=== PATIENT | female | born 1980 | race Caucasian/White ===

== ENCOUNTER 2022-06-07 10:45 | Outpatient (RCR) | payer BC, SELFPAY | END 2022-07-20 11:48 | disposition home or self-care (01) | PROVIDERS: Visit Provider Advanced Practice Midwife | DX: M25.551 Pain in right hip (principal); M54.50 Low back pain, unspecified; Z51.89 Encounter for other specified aftercare | CPT/HCPCS: 97110; 97140; 97535 ==

== ENCOUNTER 2022-07-20 07:55 | Outpatient (CLI) | payer BC, SELFPAY ==
[2022-07-20 18:06] LABS: Vitamin D 25 Hydroxy* 52 ng/mL (30-80)
[2022-07-20 23:17] LABS: Cholesterol* 146 mg/dL (90-199); HDL Cholesterol* 86 mg/dL (>=50); LDL Cholesterol Calculated 50 mg/dL (<100); Triglycerides* 51 mg/dL (40-149)
== END 2022-07-20 07:56 | disposition home or self-care (01) ==
PROVIDERS: Visit Provider Family Medicine
DX: Z13.6 Encounter for screening for cardiovascular disorders (principal); Z01.419 Encounter for gynecological examination (general) (routine) without abnormal findings; E55.9 Vitamin D deficiency, unspecified; D64.9 Anemia, unspecified
CPT/HCPCS: 80061; 82306

== ENCOUNTER 2023-02-23 12:06 | Outpatient (CLI) | payer BC, SELFPAY ==
[2023-02-23 12:27] LABS: HCG Qualitative* Negative (Negative)
== END 2023-02-23 12:07 | disposition home or self-care (01) ==
PROVIDERS: PCP Family Medicine; Visit Provider Internal Medicine
DX: Z12.11 Encounter for screening for malignant neoplasm of colon (principal); Z80.0 Family history of malignant neoplasm of digestive organs
CPT/HCPCS: 45378; 84703; J2250; J3010

== ENCOUNTER 2023-10-05 07:45 | Outpatient (CLI) | payer BC, SELFPAY | END 2023-10-05 07:46 | disposition home or self-care (01) | LOC: NFLDREF 10-12 07:36 | PROVIDERS: PCP Family Medicine; Referring Provider Family Medicine; Visit Provider Family Medicine | DX: Z01.419 Encounter for gynecological examination (general) (routine) without abnormal findings (principal); E66.9 Obesity, unspecified; Z13.6 Encounter for screening for cardiovascular disorders | CPT/HCPCS: 80053; 80061 ==

== ENCOUNTER 2024-01-16 07:30 | Outpatient (RCR) | payer BC, SELFPAY | END 2024-02-18 09:36 | disposition home or self-care (01) | PROVIDERS: PCP Family Medicine; Visit Provider Family Medicine | DX: M54.50 Low back pain, unspecified (principal); M25.551 Pain in right hip; M25.552 Pain in left hip; M79.672 Pain in left foot; M62.81 Muscle weakness (generalized); Z51.89 Encounter for other specified aftercare | CPT/HCPCS: 97110; 97140; 97161 ==

== ENCOUNTER 2024-03-21 14:25 | Outpatient (CLI) | payer BC, SELFPAY ==
--- NOTE | 2024-03-21 14:40 | MM_ITS ---
Patient: TANK ACOSTA Facility:?[facility] Patient ID:?[id number] Site Patient ID:?[id number]. Site :?[id number] Study:?XRay-Breast Bilateral 3D W/CAD-03/21/2024 3:00:42 PM Ordering Physician:Renata Final Report: BILATERAL SCREENING MAMMOGRAM WITH COMPUTER-AIDED DETECTION AND TOMOSYNTHESIS TECHNIQUE: CC and MLO views were obtained. These mammographic images have been obtained using full-field digital technique. These mammographic images were interpreted with the benefit of computer-aided detection. Breast Tomosynthesis was used in this interpretation. COMPARISON FILM: Baseline. FINDINGS: The breasts are heterogeneously dense, which may obscure small masses. IMPRESSION: There is no radiographic evidence for malignancy. ASSESSMENT: BI-RADS Category 1: Negative RECOMMENDATION: Routine screening mammogram in 1 year. A lay language report of this examination will be provided to the patient. Davi Estrada M.D. Diagnostic Radiologist [email or web address] DSM/sp R& Transcribed: 8:09 p.m. SP/Dictated by: Davi Estrada MD @ 03/27/2024 9:59:00 AM Signed by:?Davi Estrada MD @03/27/2024 8:30:13 PM (Electronic Signature)
== END 2024-03-21 14:26 | disposition home or self-care (01) ==
LOC: MAMMO 14:26
PROVIDERS: PCP Family Medicine; Visit Provider Family Medicine
DX: Z12.31 Encounter for screening mammogram for malignant neoplasm of breast (principal); R92.2 Inconclusive mammogram
CPT/HCPCS: 77063; 77067

== ENCOUNTER 2025-02-11 08:11 | Outpatient (CLI) | payer BC, SELFPAY | END 2025-02-11 08:12 | disposition home or self-care (01) | LOC: NFLDREF 17:54 | PROVIDERS: PCP Family Medicine; Referring Provider Family Medicine; Visit Provider Family Medicine | DX: E66.9 Obesity, unspecified (principal); R53.83 Other fatigue; R73.01 Impaired fasting glucose; F33.42 Major depressive disorder, recurrent, in full remission; Z13.6 Encounter for screening for cardiovascular disorders | CPT/HCPCS: 80053; 80061; 84439; 84443 ==

== ENCOUNTER 2025-07-03 08:57 | Outpatient (CLI) | payer BC, SELFPAY ==
--- NOTE | 2025-07-03 09:15 | CRLHL7_ITS ---
For Patients: As a result of the Cures Act, medical imaging exams and procedure reports are released immediately into your electronic medical record. You may view this report before your referring provider. If you have questions, please contact your health care provider. INDICATION: BILATERAL SCREENING MAMMOGRAM, ASYMPTOMATIC 45 Y/O FEMALE COMPARISON: 03/21/2024 TECHNIQUE: Digital mammogram in CC and MLO projections including computer-aided detection (CAD) and tomosynthesis. BREAST COMPOSITION: The breasts are heterogeneously dense, which may obscure small masses. FINDINGS: No suspicious findings. ASSESSMENT: BI-RADS 1 Negative RECOMMENDATION: Annual screening mammogram. A lay language report of this examination will be provided to the patient. Dictated by: Davi Estrada MD @ 07/03/2025 09:36:43 (Electronically Signed)
== END 2025-07-03 08:58 | disposition home or self-care (01) ==
LOC: MAMMO 08:58
PROVIDERS: PCP Family Medicine; Visit Provider Family Medicine
DX: Z12.31 Encounter for screening mammogram for malignant neoplasm of breast (principal); R92.333 Mammographic heterogeneous density, bilateral breasts
CPT/HCPCS: 77063; 77067

== ENCOUNTER 2025-09-23 09:18 | Outpatient (CLI) | payer BC, SELFPAY ==
[2025-09-25 06:14] LABS: HPV Source Cervix
[2025-09-25 12:31] LABS: HPV Genotype 16 by TMA Not Detected; HPV Genotype 18/45 by TMA Not Detected
[2025-09-28 18:41] LABS: Pap Test Digital Imaging Done
== END 2025-09-23 09:19 | disposition home or self-care (01) ==
PROVIDERS: PCP Family Medicine; Visit Provider Registered Nurse
DX: Z12.4 Encounter for screening for malignant neoplasm of cervix (principal); Z11.51 Encounter for screening for human papillomavirus (HPV)
CPT/HCPCS: 87624; 87625; 88141; 88142; 88175